=== PATIENT | male | born 1980 | race Caucasian/White ===

== ENCOUNTER 2017-02-19 08:41 | Emergency (ER) | payer OTHER ==
[2017-02-19 09:03] VITALS: BP 141/74
--- NOTE | 2017-02-19 09:38 | RAD ---
Indication: Pain at the RIGHT fourth finger proximal interphalangeal joint following jamming injury yesterday. Comparison: None. Technique: 3 views RIGHT fourth finger REPORT AND IMPRESSION: Mildly comminuted intra-articular fracture at the volar aspect of the base of the fourth proximal phalanx with up to 4 mm AP articular surface discontinuity and 1 -- 2 mm articular surface incongruity due to anterior and distal displacement of the volar fragments. Dorsal and ulnar subluxation of the base of the middle phalanx relative to the head of the proximal phalanx. Surrounding soft tissue swelling.
--- NOTE | 2017-02-19 15:19 | UC ---
Crissy Gill Alok, scribed for Lola Rodriguez MD on 02/19/17 at 0935 . Hand/Wrist HPI - HPI Summary HPI Summary: 36 y/o male presents to the for finger jam, right 4th finger, at 0945 last night. This am worse pain and swelling. No p/d. No other injury reported. Has not been using a splint. Took naproxen since injury. - History Of Current Complaint Chief Complaint: UCUpperExtremity Stated Complaint: FINGER INJURY Time Seen by Provider: 02/19/17 09:17 Hx Obtained From: Patient ?: No Onset/Duration: Gradual Onset, Lasting Hours, Still Present Severity Initially: Moderate Severity Currently: Moderate Pain Intensity: 7 Pain Scale Used: 0-10 Numeric Aggravating Factor(s): Movement Alleviating: Nothing Associated Signs And Symptoms: Positive: Weakness - Allergies/Home Medications Allergies/Adverse Reactions: Allergies Allergy/AdvReac Type Severity Reaction Status Date / Time Cefuroxime Allergy Severe SCALP ITCH Verified 09/12/16 09:30 Erythromycin Allergy SCALP ITCH Verified 09/12/16 09:30 Home Medications: Home Medications Oxycodone HCl [Oxaydo] 02/19/17 [History] PMH/Surg Hx/FS Hx/Imm Hx Previously Healthy: Yes Respiratory History Of: Reports: Asthma - A CHILD - Surgical History Surgical History: Yes Surgery Procedure, Year, and Place: HERNIA REPAIR-2008. NASAL SURGERY 05/2012- [facility] – [place]. APPENDECTOMY-AGE 11. BROKEN RIGHT ARM- 1982. INGUINAL HERNIA REPAIRED A - Family History Known Family History: Negative: Cardiac Disease, Diabetes - Social History Occupation: Employed Full-time Lives: With Family - Alcohol Use: Occasionally Substance Use Type: None Smoking Status (MU): Former Smoker Amount Used/How Often: 1 PPD X 16 YEARS When Did the Patient Quit Smoking/Using Tobacco: 4 YEARS AGO Review of Systems Constitutional: Negative Skin: Negative Eyes: Negative ENT: Negative Respiratory: Negative Cardiovascular: Negative Gastrointestinal: Negative Genitourinary: Negative Motor: Other - see hpi Neurovascular: Negative Musculoskeletal: Other: - Right 4th finger jam Neurological: Negative Psychological: Negative All Other Systems Reviewed And Are Negative: Yes Physical Exam Triage Information Reviewed: Yes Appearance: Well-Nourished Vital Signs: Initial Vital Signs Temp 97.5 F 02/19/17 08:55 Pulse 74 02/19/17 08:55 Resp 18 02/19/17 08:55 BP 141/74 02/19/17 08:55 Pulse Ox 96 02/19/17 08:55 Vital Signs Reviewed: Yes Eye Exam: Normal ENT Exam: Normal Neck exam: Normal Respiratory Exam: Normal - No dyspnea, no tachypnea, normal respiratory rate Cardiovascular Exam: Normal - Heart rate regular, good general skin color, good capillary refill Abdominal Exam: Normal Abdomen Description: Positive: Nontender, No Organomegaly, Soft Bowel Sounds: Positive: Present Musculoskeletal: Positive: Other: - Right 4th finger tender, swelling PIP joint. Painful to move. Distal cap refill good. + distal sens LT present. Neurological Exam: Normal - nonfocal, grossly intact finger exam see above Psychological Exam: Normal - Conversing easily and appropriately Skin Exam: Normal Skin: Positive: Other - Brusing right 3rd finger. Sensation normal. Diagnostics - Radiology Finger XRAY Xray Interpretation: Positive (See Comments) - REPORT AND IMPRESSION: Mildly comminuted intra-articular fracture at the volar aspect of the base of the fourth proximal phalanx with up to 4 mm AP articular surface discontinuity and 1 -- 2 mm articular surface incongruity due to anterior and distal displacement of the volar fragments. Dorsal and ulnar subluxation of the base of the middle phalanx relative to the head of the proximal phalanx. Surrounding soft tissue swelling. Radiology Interpretation Completed By: Radiologist Hand/Wrist Course/Dx - Course Course Of Treatment: No new problems in CCC. Reviewed xray with pt. Orthopedic surgery notified, D/w Dr. Mcdonald. He will see Mr. Wisdom in the office today or tomorrow afternoon. Splint applied. Questions answered to the best of my ability. Declines analgesics. - Differential Dx/Diagnosis Provider Diagnoses: R 4th digit comminuted intraarticular PIP fx - Physician Notifications Discussed Patient Care With: Paged Dr. Rdz (Orthopedics) @ 1202. Dr. Mcdonald ( Orthopedics) @ 6048 Discharge - Discharge Plan Condition: Stable Disposition: HOME Patient Education Materials: Finger Fracture (ED) Referrals: Adore Dumont MD [Primary Care Provider] - Zeferino Mcdonald MD [Medical Doctor] - Additional Instructions: Please call Dr. Mcdonald (Orthopedics) today and set up an appt for this afternoon or tomorrow. Keep splint on at all times. If new or worsening conditions seek medical attention in the meantime. Follow up with you primary care provider per routine. The documentation as recorded by the Crissy nassar Alok accurately reflects the service I personally performed and the decisions made by me, Lola Rodriguez MD.
== END 2017-02-19 10:42 | disposition home or self-care (01) ==
LOC: UCEAST 08:41
DX: S62.614A Displaced fracture of proximal phalanx of right ring finger, initial encounter for closed fracture (principal); W23.0XXA Caught, crushed, jammed, or pinched between moving objects, initial encounter; Y93.9 Activity, unspecified; Y92.9 Unspecified place or not applicable; Z88.1 Allergy status to other antibiotic agents; Z87.891 Personal history of nicotine dependence
CPT/HCPCS: 73140; 99212; G0463

== ENCOUNTER → 2017-02-27 12:43 | Day surgery (SDC) | payer OTHER ==
[~2017-02-27 12:43] MED LIST: Buffered Lidocaine 1% SYRIN* 3 ML/SYR SYRINGE INTRADERM ONE; Bupivacaine 0.5% SDV PF* 30 ML VIAL ONE; Dexamethasone IV* 4 MG/ML 1 ML (4 MG) IV SLOW PU ONE; Dexamethasone IV* 4 MG/ML 1 ML (4 MG) ONE; DiMENhydriNATE IV* 50 MG/ML VIAL IV PUSH PRN; Famotidine IV* 10 MG/ML 2 ML (20 mg) IV ONE; Famotidine IV* 10 MG/ML 2 ML (20 mg) ONE; HYDROmorphone* 1 MG/ML 1 ML SYR IV PRN; HYDROmorphone* 1 MG/ML 1 ML SYR ONE; Ketorolac INJ* 30 MG/ML 1 ML VIAL ONE; Lidocaine 2% PF* 5 ML VIAL ONE; Midazolam* 1 MG/ML 5 ML VIAL (5 MG) ONE; Ondansetron INJ* 2 MG/ML VIAL IV PRN; Ondansetron INJ* 2 MG/ML VIAL ONE; PROCHLORPERAZINE INJ 5 MG/ML 2 ML VIAL IV PRN; Propofol* 10 MG/ML 20 ML BTL IV PUSH ONE; Scopolamine 1.5 mg* PATCH TRANSDERM PRN; Scopolomine PATCH Remove* 1 NOTE MISC PATCH OFF ONE; ceFAZolin 2 GM PREMIX(*) 2 GM/50 ML BAG IVPB ONE; fentaNYL* 50 MCG/ML 2 ML VIAL (100 MCG VIAL) IV PRN; fentaNYL* 50 MCG/ML 2 ML VIAL (100 MCG VIAL) ONE
[2017-02-27 18:04] VITALS: BP 114/74
--- NOTE | 2017-02-27 21:56 | RAD ---
CPT II Codes: 6045F INDICATION: Proximal phalanx fracture right ring finger. 8 images of the fourth finger demonstrates internal fixation of a volar plate fracture at the fourth digit. IMPRESSION: Fluoroscopic services provided for referring physician for internal fixation.
--- NOTE | 2017-02-28 11:45 | OP ---
OPERATIVE REPORT: DATE OF OPERATION: 02/27/17 DATE OF : 78 SURGEON: Zeferino Mcdonald MD SCRIBING MACHINE OPERATOR: TALHA Zuñiga ANESTHESIOLOGIST: Manuel Joy MD ANESTHESIA: General and plus digital block. PRE-OP DIAGNOSIS: Right ring finger dorsal proximal interphalangeal joint fracture dislocation. POST-OP DIAGNOSIS: Right ring finger dorsal proximal interphalangeal joint fracture dislocation. OPERATIVE PROCEDURE: Closed reduction and dynamic external fixator application to right ring finger, dorsal proximal interphalangeal joint fracture dislocation. INDICATIONS: Carlos had the dorsal fracture dislocation about a week ago. I had seen him in my office and I have gotten a CT scan to evaluate the extent of the articular surface injury. It was about 50% to 60% of the joint surface was involved more so on radial side than the ulnar. I had spoken with Carlos about treatment options. These included dorsal block pinning, which I thought given the extent of the articular injury would probably not be a good option here versus dynamic external fixation versus ORIF versus kamla hamate reconstruction of the volar joint. I had told Seam that I would see if we can get a stable and congruent joint that did not have the "rocking-horse phenomenon" with motion we would attempt to place a dynamic external fixator. If not, I would open the joint and repair it if possible. He agreed to proceed after discussion of risks and benefits. He understands this is a difficult injury and is marked by stiffness and occasionally chronic pain. ESTIMATED BLOOD LOSS: 5 mL. COMPLICATIONS: None. FINDINGS: With traction, I was able to achieve a stable and congruent joint through a full flexion arc. DESCRIPTION OF PROCEDURE: Carlos was seen in the preoperative holding area. The correct side, site, and procedure were identified and procedure were identified. We came back to the operating room. Anesthesia was induced and then I anesthetized the operative finger by a performing a digital block with 0.5% Marcaine. We then prepped and draped the hand in the usual fashion and formal time-out was performed. I began by bringing in the mini C-arm and applying longitudinal traction. I was able to get the joint reduced. As I took the fingers through a flexion arc , the finger maintained a congruent reduction without any Rocking-horse phenomenon. If I let the traction off as would be the case with the dorsal blocking pin, there was a definite Rocking-horse phenomenon. At this time, I decided to apply and check the reduction after constructing a dynamic external fixator. I began by placing a 0.045 K-wire parallel to the joint surface through the center of the condyles of the proximal phalanx. This was parallel to the joint surface and also parallel to the dorsal surface of the bone. After this pin was placed in position and trajectory were confirmed on fluoroscopy, I then placed a second wire in similar fashion in the distal aspect of the middle phalanx. I then bent the wire coming through the proximal phalanx at 90 degrees on either side of the finger. The bent end of the wires were then passed volar to the wire going to the middle phalanx. I then bent back the 2 ends of the bent wire in S-type fashion leaving the bend just a little farther distal than the wire going to middle phalanx. I then was able to pass the middle phalanx wire through both S-shaped bend. This provided nice traction. I wanted to make sure that I was getting a nice volarly-directed moment and so I went ahead and passed a wire through the middle phalanx just distal to the fracture at the distal aspect of the metaphysis. The 2 ends of this wire were then passed volar to the 2 ends of the dynamic external fixator. This provided an excellent volarly-directed moment. I then checked the congruency of the reduction in both just 10 or 20 degrees of flexion followed by successive amounts of flexion all the way up to 90 degrees of flexion. The joint glided concentrically and there was no Rocking-horse phenomenon. I then attempted to use a 22-gauge needle to disimpact some of the fragments. This was minimally successful. Ultimately, I decided I would do more harm than good by continuing to pass the needle into the finger and so I was pleased enough to put the reduction and I left that alone. After all the wires were bent and clipped and everything was positioned appropriately, again we checked some final fluoroscopic images and saved them and printed them. The pin sites were all just dressed with a little bit of Xeroform. He was then woken up and taken to recovery room in stable condition. We did not require the use of tourniquet for the surgery. [id number]/[facility] #: [id number] [facility] INSANETaina
== END | disposition home or self-care (01) ==
LOC: OR 12:43
PROVIDERS: ATTEND Orthopaedic Surgery Hand Surgery
DX: S62.624A Displaced fracture of middle phalanx of right ring finger, initial encounter for closed fracture (principal); Z87.891 Personal history of nicotine dependence; W21.02XA Struck by soccer ball, initial encounter; Y93.66 Activity, soccer; Y92.322 Soccer field as the place of occurrence of the external cause
CPT/HCPCS: 76001; C1776; J0690; J1100; J1170; J1885; J2250; J2405; J2704; J3010

== ENCOUNTER → 2018-11-27 09:50 | Day surgery (SDC) | payer OTHER ==
[~2018-11-27 09:50] MED LIST changes: +Buffered Lidocaine 0.9% SYRIN* 5 ML/SYR SYRINGE INTRADERM ONE; -Buffered Lidocaine 1% SYRIN* 3 ML/SYR SYRINGE INTRADERM ONE; -Bupivacaine 0.5% SDV PF* 30 ML VIAL ONE; +Bupivacaine 0.5% W/EPI SDV* 30 ML VIAL ONE; -Dexamethasone IV* 4 MG/ML 1 ML (4 MG) IV SLOW PU ONE; -Dexamethasone IV* 4 MG/ML 1 ML (4 MG) ONE; +Dexamethasone TAB* 4 MG ONE; +Dexamethasone TAB* 4 MG PO ONE; +DiMENhydriNATE IV* 50 MG/ML VIAL ONE; -HYDROmorphone* 1 MG/ML 1 ML SYR IV PRN; -HYDROmorphone* 1 MG/ML 1 ML SYR ONE; +KETAMINE HCL* 50 MG/ML 10 ML VIAL ONE; +Lactated Ringers 1000 ML Bag* 1,000 ML IV SCH; +Lidocaine 1% INJ* 10 MG/ML 30 ML SDV ONE; +Lidocaine 2% PF * 5 ML VIAL ONE; -Lidocaine 2% PF* 5 ML VIAL ONE; +Morphine VIAL* 4 MG/ML VIAL (1 ml vial) IV PRN; +Naloxone* 0.4 MG/ML 1 ML VIAL IV PRN; -Ondansetron INJ* 2 MG/ML VIAL IV PRN; -Ondansetron INJ* 2 MG/ML VIAL ONE; +Ondansetron ODT TAB* 4 MG ONE; +Ondansetron TAB* 4 MG PO ONE; +PROCHLORPERAZINE INJ 5 MG/ML 2 ML VIAL ONE; -Propofol* 10 MG/ML 20 ML BTL IV PUSH ONE; +Propofol* 10 MG/ML 20 ML BTL ONE; +Scopolamine 1.5 mg* PATCH ONE; -Scopolamine 1.5 mg* PATCH TRANSDERM PRN; -Scopolomine PATCH Remove* 1 NOTE MISC PATCH OFF ONE; +ceFAZolin 2 GM PREMIX in ORs 2 GM/50 ML BAG IVPB ONE; -ceFAZolin 2 GM PREMIX(*) 2 GM/50 ML BAG IVPB ONE; +oxyCODONE/Acetamin 5/325 MG* TAB PO PRN
--- NOTE | 2018-11-27 12:57 | OP ---
CC: Dr. Adore Dumont DATE OF OPERATION/DATE OF DICTATION: 11/27/2018. DATE OF : 1980. SURGEON: Dr. Jaleel Hwang. PULP PLANT SUPERVISOR: Kristina Young NP. ANESTHESIOLOGIST: Dr. Jaleel Dunaway. ANESTHESIA: LMAC anesthesia. PRE-OP DIAGNOSIS: Left inguinal hernia. POST-OP DIAGNOSIS: Left inguinal hernia. OPERATIVE PROCEDURE: Open left inguinal hernia repair with mesh. ESTIMATED BLOOD LOSS: 20 ml. DESCRIPTION OF PROCEDURE: The patient was supine on the operating room table. After adequate intrave nous sedation, compression stockings, Aayush Hugger warmer, and intravenous antibiotics, the abdomen wa s prepped with antiseptic and draped in a sterile fashion. Local infiltrative anesthesia was adminis tered. An approximately 3 inch incision was created in the left inguinal area. Dissection was angeles ed down to the external oblique which was opened in the direct of its fibers. There appeared to be s ome scarring and fibrosis between the aponeurosis and the underlying transverse abdominis. The plane was developed and there was a large direct space hernia encompassing almost the entirety of the ingu inal floor. This was opened at the transversalis fascia and reduced and a preperitoneal plane was de veloped. The Prolene hernia system PHSE patch was put into place. The anterior leaf was sutured at Ciro's ligament and up under the transversus abdominis. The external leaf was sutured at the tuber mansi at the transverse abdominis and at the inguinal ligament. Tails were split, brought around the c ord structures, and tacked down laterally. External oblique was closed over top with 2-0 Vicryl, Sca rp's with 3-0 Vicryl, and skin with 4-0 Prolene followed by a sterile dressing. He tolerated the proc edure well and was brought to recovery in good condition. No complications, no drains, no pathologic specimens. Sponge and instrument counts correct. Note: This procedure was more difficult and time consuming than typical of its type. [id number]/[facility] #: [id number]
[2018-11-27 15:19] VITALS: BP 123/60
== END | disposition home or self-care (01) ==
LOC: OR 09:50
PROVIDERS: ATTEND Surgery
DX: K40.90 Unilateral inguinal hernia, without obstruction or gangrene, not specified as recurrent (principal); Z87.891 Personal history of nicotine dependence; G47.33 Obstructive sleep apnea (adult) (pediatric)
CPT/HCPCS: A9270-GY; C1781; J0690; J0780; J1240; J1885; J2250; J2704; J3010; J8540